=== PATIENT | female | born 1990 | race Caucasian/White ===

== ENCOUNTER 2022-04-29 11:34 | Emergency (ER) | payer OTHER, SELFPAY ==
[2022-04-29 11:43] VITALS: BP 131/85; PULSE 95; RESP 16; TEMP 36.4; O2SAT 100
--- NOTE | 2022-04-29 12:21 | ED.GENADULT ---
HPI - General Adult General Chief complaint: Upper Respiratory Infection Stated complaint: sore throat Time Seen by Provider: 04/29/22 12:18 Source: patient Mode of arrival: ambulatory Limitations: no limitations History of Present Illness HPI narrative: 32 year old female who presents to [facility] with complaints of sore throat for one week duration. patient reports that she had some left over Bactrim that she took but not feeling any better. Patient reports that she has not had any fevers, chills or body aches. She states that she just feels bad and throat is painful to swallow especially. MD complaint: sore throat Onset (ago): week(s) (1) Severity scale (1-10): 5 Treatments prior to arrival: other (left over Bactrim) Related Data Home Medications Medication Instructions Recorded Confirmed fluoxetine 40 mg capsule mg 04/29/22 Allergies Allergy/AdvReac Type Severity Reaction Status Date / Time No Known Allergies Allergy Verified 04/29/22 11:42 Review of Systems Review of Systems: CONSTITUTIONAL: Denies malaise, chills, sweats, or fever. EYES: Denies visual changes, redness, or discharge. ENT: Reports no rhinorrhea, congestion, sinus pain, otalgia positive for sore throat. CARDIOVASCULAR: Denies chest pain, palpitations, or edema. RESPIRATORY: No cough.? Denies dyspnea. GASTROINTESTINAL: Denies abdominal pain, nausea, vomiting, diarrhea SKIN: Denies rash or itching. MUSCULOSKELETAL: Denies myalgia. NEUROLOGIC: Denies headache. All systems reviewed & are unremarkable except as noted in HPI and below PMFSH Comments At time of signature, agree with nursing past medical, surgical, social and family history. There is no relevant family history pertinent to the presenting complaint Exam Narrative: GENERAL: Well-appearing, well-nourished, and in no acute distress. HEAD: Normocephalic EYES: PERRLA, conjunctivae clear ENT: Nares clear, turbinates edematous and erythematous, clear discharge. Mucous membranes moist. TM pearly bradley with dull light reflex bilaterally; no tragal tenderness. Oropharynx erythematous without lesions. Tonsils red and enlarged and without exudate, no drooling, no hoarseness, no trismus, uvula midline. NECK: Supple. lymphadenopathy CHEST: Clear to auscultation, breath sounds equal. No wheezing, rhonchi, rales, or stridor. No respiratory distress, speaks in full sentences.no cough, SAO2 100% on room air HEART: Regular rate and rhythm. No murmur heard. SKIN: Warm, dry, no rash. NEURO: Alert and oriented x3. PSYCH: Normal mood and affect Course Course Emergency Course: Patient is aware of diagnosis, understands and agrees to treatment plan.? Anticipatory guidance given.? Patient agrees to follow-up as directed and is aware of reasons to seek care at the emergency department. Portions of this record may have been created with voice recognition software Level of Care: Express Care Visit Vital Signs Vital signs: Vital Signs Temperature 36.4 C 04/29/22 11:43 Pulse Rate 95 04/29/22 11:43 Respiratory Rate 16 04/29/22 11:43 Blood Pressure 131/85 04/29/22 11:43 Pulse Oximetry 100 04/29/22 11:43 Oxygen Delivery Room Air 04/29/22 11:43 Temperature 36.4 C 04/29/22 11:43 Pulse Rate 95 04/29/22 11:43 Respiratory Rate 16 04/29/22 11:43 Blood Pressure 131/85 04/29/22 11:43 Pulse Oximetry 100 04/29/22 11:43 Oxygen Delivery Room Air 04/29/22 11:43 Reviewed Medical Decision Making Differential Diagnosis Differential Diagnosis: uri, pharyngitis. strep pharyngitis, viral syndrome Medical Records Medical records reviewed: Yes I reviewed the external patient's medical records. Vital Signs Vital Signs: Vital Signs Temperature 36.4 C 04/29/22 11:43 Pulse Rate 95 04/29/22 11:43 Respiratory Rate 16 04/29/22 11:43 Blood Pressure 131/85 04/29/22 11:43 Pulse Oximetry 100 04/29/22 11:43 Oxygen Delivery Room
== END 2022-04-29 12:41 | disposition home or self-care (01) ==
PROVIDERS: Emergency Provider Registered Nurse; PCP Internal Medicine
DX: J02.0 Streptococcal pharyngitis (principal)
CPT/HCPCS: 87880; 99213; G0463